=== PATIENT | female | born 1985 | race African-American/Black ===

== ENCOUNTER 2022-10-30 02:14 | Emergency (ER) | payer MEDICAID ==
[~2022-10-30] VITALS: Ht 157.5 cm; Wt 73.0 kg
[2022-10-30] MEDS ORDERED: ACETAMINOPHEN 325MG TABLET PO ONE (03:15)
[2022-10-30] MEDS ORDERED: LIDOCAINE 5% PATCH TOP ONE (04:00)
[2022-10-30] MEDS ORDERED: IBUP-2029 MT (05:43)
[2022-10-30] MEDS ORDERED: BACL-141 MT (05:43)
[2022-10-30 06:25] VITALS: BP 119/79
== END 2022-10-30 06:26 | disposition home or self-care (01) ==
LOC: ER 02:14
DX: S43.492A Other sprain of left shoulder joint, initial encounter (principal); S93.491A Sprain of other ligament of right ankle, initial encounter; Z88.2 Allergy status to sulfonamides; V43.62XA Car passenger injured in collision with other type car in traffic accident, initial encounter; Y93.89 Activity, other specified; Y92.488 Other paved roadways as the place of occurrence of the external cause
CPT/HCPCS: 73030; 73060; 73090; 73610; 99284

== ENCOUNTER 2025-05-15 17:01 | Emergency (ER) | payer MEDICAID ==
[~2025-05-15] VITALS: Ht 157.5 cm; Wt 77.1 kg
[~2025-05-15 17:01] MED LIST: BACL-141 MT; IBUP-1455 MT
[2025-05-15 17:05] VITALS: O2SAT 100
[2025-05-15 18:08] LABS: CLARITY URINE CLEAR (CLEAR); COLOR URINE DARK YELLOW (YELLOW); GLUCOSE URINE NEGATIVE (NEGATIVE); KETONES URINE 4+ (NEGATIVE); LEUKOCYTE ESTERASE URINE NEGATIVE (NEGATIVE); NITRITE URINE NEGATIVE (NEGATIVE); OCCULT BLOOD URINE NEGATIVE (NEGATIVE); PH URINE 5.5 (4.5-8.0); PROTEIN URINE TRACE (NEGATIVE); SPECIFIC GRAVITY URINE 1.034 (1.005-1.030)
[2025-05-15 18:24] LABS: BASOPHILS % 1.1 % (0.0-2.0); EOSINOPHILS % 3.8 % (0.0-5.0); HEMOGLOBIN. 12.9 g/dL (12.0-16.0); LYMPHOCYTES % 38.2 % (20.0-50.0); MEAN CORPUSCULAR HEMOGLOBIN 28.1 pg (28.0-32.0); MEAN CORPUSCULAR HGB CONC 33.1 g/dL (31.0-37.0); MEAN CORPUSCULAR VOLUME 85.1 fL (81.0-99.0); MEAN PLATELET VOLUME 7.1 fl (7.4-10.4); MONOCYTES % 6.7 % (2.0-8.0); NEUTROPHILS % 50.2 % (40.0-76.0); PLATELET 329 x1000/uL (130-400); RED BLOOD CELL COUNT 4.59 mill/uL (4.2-5.4); RED CELL DISTRIBUTION WIDTH 13.9 % (11.6-14.6); WHITE BLOOD COUNT 4.6 x1000/uL (4.5-11.0)
[2025-05-15 18:34] LABS: CHLORIDE 106 mEq/L (98-107); POTASSIUM 3.1 mEq/L (3.5-5.1); SODIUM 142 mEq/L (136-145)
[2025-05-15 18:35] LABS: CARBON DIOXIDE 28 mEq/L (21-32)
[2025-05-15 18:39] LABS: TROPONIN I HIGH SENSITIVITY < 4 ng/L (3.0-34)
[2025-05-15 18:40] LABS: CREATININE 0.8 mg/dL (0.6-1.0); GLUCOSE 133 mg/dL (70-105); UREA NITROGEN BLOOD 9 mg/dL (9-23)
[2025-05-15 18:42] LABS: ALANINE AMINOTRANSFERASE 8 IU/L (10-49); ALBUMIN 4.2 g/dL (3.2-4.8); ASPARTATE AMINOTRANSFERASE 14 IU/L (<34); PROTEIN TOTAL 7.1 g/dL (6.0-8.3)
[2025-05-15] MEDS: SODIUM CHLORIDE 0.9% 1,000 ML IV ONE (18:58)
[2025-05-15 19:03] LABS: BACTERIA URINE 1+; RBC URINE 0-2 /hpf (0-2); SQUAMOUS EPITHELIAL CELL URINE 1+ /lpf (RARE/1+); WBC URINE 0-2 /hpf (0-2)
[2025-05-15 20:08] VITALS: BP 162/92; PULSE 72; RESP 14; TEMP 36.7; O2SAT 95
[2025-05-15 20:14] LABS: HCG SCREEN NEGATIVE
== END 2025-05-15 20:20 | disposition home or self-care (01) ==
LOC: ER 17:01
DX: R53.1 Weakness (principal); Z88.2 Allergy status to sulfonamides; Z88.1 Allergy status to other antibiotic agents; Z88.0 Allergy status to penicillin; Z85.6 Personal history of leukemia; Z98.890 Other specified postprocedural states
CPT/HCPCS: 99284; 96360; 71045; 80053; 81003; 81025; 84703; 85025; 84484; 36415; 93005; J7030